=== PATIENT | female | born 1960 | race Caucasian/White ===

== ENCOUNTER → 2016-07-10 | Outpatient (CLI) | payer OTHER ==
[~2016-07-10] MED LIST: ACET-783; IBUP-1324 PO; MULT-806 PO; VITAMIN B6; VITAMIN C; VITAMIN D
== END ==
LOC: WC.BC 15:42
DX: Z12.31 Encounter for screening mammogram for malignant neoplasm of breast (principal)
CPT/HCPCS: 77063; G0202